=== PATIENT | male | born 2000 | race Caucasian/White ===

== ENCOUNTER 2021-03-31 15:13 | Outpatient (REF) | payer BC, MEDICAID, SELFPAY ==
[2021-04-01 14:17] LABS: COVID-19 RT-PCR UVMMC Result Negative (Negative)
== END 2021-03-31 15:14 | disposition home or self-care (01) ==
LOC: NCHCN 15:13
PROVIDERS: Referring Provider Nurse Practitioner Family; Visit Provider Nurse Practitioner Family
DX: Z20.822 Contact with and (suspected) exposure to COVID-19 (principal)
CPT/HCPCS: U0003

== ENCOUNTER 2021-08-25 11:00 | Outpatient (REF) | payer BC, MEDICAID, SELFPAY ==
[2021-08-27 13:06] LABS: COVID-19 RT-PCR UVMMC Result Negative (Negative)
== END 2021-08-25 11:01 | disposition home or self-care (01) ==
LOC: LBN 11:00
PROVIDERS: Visit Provider Nurse Practitioner Family
DX: Z20.822 Contact with and (suspected) exposure to COVID-19 (principal); R09.89 Other specified symptoms and signs involving the circulatory and respiratory systems
CPT/HCPCS: U0003

== ENCOUNTER 2021-09-15 18:26 | Outpatient (REF) | payer BC, MEDICAID, SELFPAY ==
[2021-09-15 21:24] LABS: HCT 48.3 % (40.0-50.0); HGB 16.6 g/dL (13.5-17.5); MCH 29.9 pg (27.0-33.0); MCHC 34.4 % (32.0-36.0); MCV 86.9 fL (80-95); MPV 10.6 fL (8.0-11.0); Platelet Count 308 10^3/uL (130-400); RBC 5.56 10^6/uL (4.36-5.78); RDW 11.9 % (11.8-14.1); RDW-SD 38.4 fL; WBC 12.36 10^3/uL (4.4-10.8)
[2021-09-15 21:36] LABS: ALT 41 U/L (16-63); AST 21 U/L (15-37); Albumin 4.5 g/dL (3.4-5.0); Alkaline Phosphatase 109 U/L (46-116); Anion Gap 9.2 mmol/L (3-11); BUN 10 mg/dL (7-18); Bilirubin, Total 0.5 mg/dL (0.2-1.0); CO2 27.8 mmol/L (21.0-32.0); CREATININE 0.9 mg/dL (0.70-1.30); Calcium 9.6 mg/dL (8.5-10.1); Chloride 102 mmol/L (98-107); Glucose 87 mg/dL (74-106); Sodium 139 mmol/L (136-145); Total Protein 7.5 g/dL (6.4-8.2)
== END 2021-09-15 18:27 | disposition home or self-care (01) ==
LOC: NCHCN 18:26
PROVIDERS: Visit Provider Internal Medicine
DX: R11.0 Nausea (principal); M79.7 Fibromyalgia
CPT/HCPCS: 80053; 85027

== ENCOUNTER 2022-08-31 02:10 | Outpatient (CLI) | payer BC, MEDICAID, SELFPAY ==
[2022-08-31 08:56] LABS: TSH (W/Ref FT4) 1.21 uIU/mL (0.36-3.74)
== END 2022-08-31 02:11 | disposition home or self-care (01) ==
LOC: LBO 02:11
PROVIDERS: PCP Nurse Practitioner Family; Visit Provider Nurse Practitioner Family
DX: E04.1 Nontoxic single thyroid nodule (principal); J45.20 Mild intermittent asthma, uncomplicated; R11.10 Vomiting, unspecified; G43.009 Migraine without aura, not intractable, without status migrainosus; F41.9 Anxiety disorder, unspecified; M79.7 Fibromyalgia
CPT/HCPCS: 36415; 84443

== ENCOUNTER 2023-06-14 19:18 | Outpatient (REF) | payer BC, MEDICAID, SELFPAY ==
[2023-06-14 14:47] LABS: Abs Immature Grans 0.03 10^3/uL (0.0-0.06); Absolute Eosinophil Count 0.28 10^3/uL (0.0-0.7); Absolute Lymphocyte Count 2.88 10^3/uL (1.2-3.4); Absolute Monocyte Count 0.62 10^3/uL (0.1-0.8); Absolute Neutrophil Count 5.23 10^3/uL (1.2-6.7); Basophils % 1.1; Eosinophils % 3.1; HCT 47.8 % (40.0-50.0); HGB 16.9 g/dL (13.5-17.5); Immature Grans % 0.3; Lymphocytes % 31.5; MCH 30.2 pg (27.0-33.0); MCHC 35.4 % (32.0-36.0); MCV 85 fL (80-95); MPV 10.1 fL (8.0-11.0); Monocytes % 6.8; Neutrophils % 57.2; Platelet Count 289 10^3/uL (130-400); RDW 12.2 % (11.8-14.1); RDW-SD 38.1 fL; WBC 9.14 10^3/uL (4.4-10.8)
[2023-06-14 14:56] LABS: ALT 44 U/L (16-63); AST 21 U/L (15-37); Albumin 4.4 g/dL (3.4-5.0); Alkaline Phosphatase 97 U/L (46-116); Anion Gap 9.5 mmol/L (3-11); BUN 9 mg/dL (7-18); Bilirubin, Total 0.7 mg/dL (0.2-1.0); CO2 28.5 mmol/L (21.0-32.0); CREATININE 0.9 mg/dL (0.70-1.30); Calcium 9.9 mg/dL (8.5-10.1); Chloride 102 mmol/L (98-107); Estimated GFR 123.84 (mL/min/1.73m2); Glucose 93 mg/dL (74-106); Sodium 140 mmol/L (136-145); Total Protein 7.3 g/dL (6.4-8.2)
== END 2023-06-14 19:19 | disposition home or self-care (01) ==
LOC: NCHCN 19:18
PROVIDERS: PCP Nurse Practitioner Family; Visit Provider Nurse Practitioner Family
DX: R11.2 Nausea with vomiting, unspecified (principal)
CPT/HCPCS: 80053; 85025

== ENCOUNTER 2024-06-25 16:20 | Outpatient (REF) | payer BC, SELFPAY | END 2024-06-25 16:21 | disposition home or self-care (01) | LOC: NCHCN 16:20 | PROVIDERS: PCP Nurse Practitioner Family; Visit Provider Nurse Practitioner Family | DX: F41.9 Anxiety disorder, unspecified (principal) | CPT/HCPCS: 84443 ==